=== PATIENT | male | born 1980 | race Two or more races ===

== ENCOUNTER 2024-02-20 14:03 | Emergency (ER) | payer OTHER ==
[~2024-02-20] VITALS: Ht 177.8 cm; Wt 77.2 kg
[2024-02-20 15:04] VITALS: BP 114/63; PULSE 71; RESP 16; TEMP 98.3; O2SAT 99
== END 2024-02-20 17:02 | disposition home or self-care (01) ==
LOC: EEVIPCON 14:03 → EDBD 14:03 → ER 14:03
DX: R55 Syncope and collapse (principal); R41.82 Altered mental status, unspecified; F31.9 Bipolar disorder, unspecified; F20.9 Schizophrenia, unspecified; F12.10 Cannabis abuse, uncomplicated
CPT/HCPCS: 36415; 70450; 84484